=== PATIENT | male | born 1980 | race African-American/Black ===

== ENCOUNTER 2020-09-10 16:57 | Outpatient (REF) | payer OTHER, SELFPAY | END 2020-09-10 16:58 | disposition home or self-care (01) | LOC: HO.LAB 16:57 | PROVIDERS: Visit Provider Internal Medicine | DX: Z20.828 Contact with and (suspected) exposure to other viral communicable diseases (principal) | CPT/HCPCS: 36415; C9803; U0003 ==

== ENCOUNTER 2021-01-14 17:37 | Emergency (ER) | payer MEDICAID, SELFPAY ==
--- NOTE | ~2021-01-14 | CT_ITS ---
EXAMINATION: CT HEAD WITHOUT CONTRAST CT CERVICAL SPINE WITHOUT CONTRAST CLINICAL INFORMATION: Fall. Left eye swelling. COMPARISON: CT facial bones 08/17/2012. CT head 06/26/2007 TECHNIQUE: Imaging was performed from the skull base to vertex without intravenous administration of contrast. In addition, helical noncontrast CT imaging was acquired through the cervical spine and source images were reviewed along with axial reconstructions and sagittal and coronal MPRs. [This CT examination was performed using dose optimization techniques as appropriate, variously including the following: *Automated exposure control *Adjustment of mA and/or kV according to patient size (this includes techniques or standardized protocols for targeted exams where dose is matched to indication/reason for exam; i.e. extremities or head) *Use of iterative reconstruction technique] DLP: 10.25+ 655.73 +359.46 mGy-cm FINDINGS: HEAD: Soft tissue swelling of the left orbit. The orbital globes and retrobulbar structures are normal. There is no skull fracture. No intracranial mass, hemorrhage, or midline shift is visualized. The ventricles and sulci are age-appropriate. No extra-axial collections are identified. Trace fluid layering dependently in the left sphenoid sinus. The mastoid air cells and middle ear cavities are normally aerated. CERVICAL SPINE: There is no evidence of acute cervical spine fracture. Vertebral bodies remain normal in height. Cervical vertebrae have normal alignment. There is multilevel degenerative spondylosis of the cervical spine with disc height narrowing and endplate spurs and facet joint arthrosis No pre- or paravertebral soft tissue abnormality is identified. Paraseptal emphysematous change of lungs. Small subpleural blebs at right lung apex. CT/CT cervical spine wo con IMPRESSION: 1. No acute intracranial pathology. 2. No CT evidence of acute cervical spine fracture or traumatic subluxation 3. Soft tissue swelling over the left orbit.
--- NOTE | ~2021-01-14 | CT_ITS ---
EXAM: Contrast-enhanced CT scan of the chest, abdomen, and pelvis. INDICATION: Question trauma. Left lower quadrant abdominal pain. COMPARISON: None TECHNIQUE: Multidetector helical imaging of the chest, abdomen, and pelvis was obtained from the thoracic inlet through the pubic symphysis following administration of 85 cc of Omnipaque 350 IV contrast. Coronal and sagittal reformatted images that were obtained were also reviewed. Today's examination is limited secondary to motion artifact. DLP: 769 mGy-cm FINDINGS: CHEST: Central airways are patent. Lungs are well aerated. Mild emphysematous changes are present. There is no lobar consolidation. Mild dependent atelectasis. No pleural effusion or pneumothorax identified. Evaluation for pulmonary nodules is limited due to respiratory motion artifact, however, no gross focal mass is identified. The heart is normal in size. Small amount of pericardial fluid without pericardial effusion. Nonaneurysmal thoracic aorta. No gross mediastinal or hilar lymphadenopathy. ABDOMEN/PELVIS: The liver demonstrates normal size, contour and attenuation. 3 mm hypodensity within the posterior right hepatic lobe is too small to accurately characterize. The gallbladder is decompressed and therefore not accurately evaluated. The pancreas, spleen and adrenal glands are unremarkable. Symmetrically enhancing kidneys. There is a dilated left renal pelvis with mild dilatation of left calyces. There is abrupt transition to a normal caliber left ureter. Normal caliber loops of small and large bowel. Prominent stool burden within the distal sigmoid colon and rectal vault. Normal caliber abdominal aorta. The bladder is normal in appearance. No gross free pelvic fluid. No inguinal lymphadenopathy. OSSEOUS STRUCTURES No acute osseous abnormality. Suspected bone island left ilium. CT/CT abdomen pelvis w con IMPRESSION: 1. Today's examination is limited due to motion artifact. 2. Mild emphysema. 3. Dilated left renal pelvis with mild dilatation of the left calyces. There appears to be abrupt transition to normal caliber left ureter. No obstructing calculus is identified. Findings suggest left UPJ stenosis. Unfortunately imaging in this area is suboptimal due to motion artifact. This may be further evaluated with repeat CT urogram as clinically indicated. 4. Prominent stool burden within the distal sigmoid colon and rectal vault. This CT examination was performed using dose optimization techniques as appropriate, variously including the following: *Automated exposure control *Adjustment of mA and/or kV according to patient size (this includes techniques or standardized protocols for targeted exams where dose is matched to indication/reason for exam; i.e. extremities or head) *Use of iterative reconstruction technique
[2021-01-14 17:57] VITALS: BP 121/70; BP 146/100; PULSE 105; PULSE 89; RESP 18; TEMP 37.5; O2SAT 99; BMI 23.6
--- NOTE | 2021-01-14 18:42 | ED.GENADULT ---
HPI - General Adult General Chief complaint: General Medical <DAREN Rogers Last Filed: 01/14/21 21:38> Stated complaint: right eye swelling/head pain <DAREN Rogers Last Filed: 01/14/21 21:38> Time Seen by Provider: 01/14/21 18:28 <DAREN Rogers Last Filed: 01/14/21 21:38> Source: patient and EMS <DAREN Rogers Last Filed: 01/14/21 21:38> Mode of arrival: EMS <DAREN Rogers Last Filed: 01/14/21 21:38> History of Present Illness HPI narrative: 40-year-old male with past medical history of IVDA/substance abuse presenting to the ED via EMS for left eye swelling, diffuse myalgias, and abdominal pain x today. Patient does not have any recollection of trauma/events. Reports nausea, and is requesting detox. Denies visual change/loss, headache, chest pain, shortness of breath, diarrhea/constipation, vomiting. Admits to drinking EtOH this morning, denies being a daily drinker, denies SI/HI Patient is a vague historian <DAREN Rogers Last Filed: 01/14/21 21:38> Related Data Allergies/adverse reactions: Allergies Allergy/AdvReac Type Severity Reaction Status Date / Time Penicillins [PENICILLINS] Allergy Unknown VOMITING Verified 01/14/21 20:43 <DAREN Rogers Last Filed: 01/14/21 21:38> Review of Systems Review of Systems: Constitutional: No Fever, No Chills ENT/Mouth: No Hearing loss, No Ear Pain, No sore throat Eyes: + Eye Pain, + Swelling, No Redness, No Foreign Body, No Discharge, No Vision Changes Cardiovascular: No Chest Pain, No SOB Respiratory: No Cough, No Dyspnea Gastrointestinal: + Nausea, No Vomiting, No Diarrhea, No Constipation, + Abdominal pain Genitourinary: No Dysuria, No Urinary Frequency, No Hematuria, No Flank Pain Musculoskeletal: No joint pain, + Myalgias Skin: No Skin Lesions, No rash Neuro: No Weakness, No Dizziness, No Headache Psych: No Depression, No SI/HI <DAREN Rogers Last Filed: 01/14/21 21:38> Yes all other systems are reviewed and are negative <DAREN Rogers - Last Filed: 01/14/21 21:38> Neurologic: Denies confusion <DAREN Rogers - Last Filed: 01/14/21 21:38> Psychiatric: Psychiatric: Denies confusion <DAREN Rogers - Last Filed: 01/14/21 21:38> PMFSH Past Medical History Attestation statement: The following information was validated with the patient. <DAREN Rogers - Last Filed: 01/14/21 21:38> Medical History: Medical History (Updated 01/14/21 @ 22:18 by Rinku Nayak MD) No known health problems <DAREN oRgers - Last Filed: 01/14/21 21:38> Social History Social History: Social History Smoking Status: Current every day smoker Use of substances other than those prescribed or required for medical reasons: Yes Substance Use Type: Crack/Cocaine and Heroin Advance Directives: No Advance Directives Information Provided: Yes <DAREN Rogers - Last Filed: 01/14/21 21:38> Physical Exam Vital Signs: Vital Signs: Last Vital Signs Temp 97.8 F 01/14/21 22:00 Pulse 84 01/14/21 22:00 Resp 16 01/14/21 22:00 BP 138/81 01/14/21 22:00 Pulse Ox 99 01/14/21 22:00 Body Mass Index 23.6 <DAREN Rogers - Last Filed: 01/14/21 21:38> Vital Signs: Last Vital Signs Temp 97.8 F 01/14/21 22:00 Pulse 84 01/14/21 22:00 Resp 16 01/14/21 22:00 BP 138/81 01/14/21 22:00 Pulse Ox 99 01/14/21 22:00 Body Mass Index 23.6 <Rinku Nayak MD - Last Filed: 01/14/21 22:18> Const: General: cooperative, alert and awake; No confusion <DAREN Rogers - Last Filed: 01/14/21 21:38> Orientation/consciousness: patient oriented x3 and No confusion <DAREN Rogers - Last Filed: 01/14/21 21:38> Limitations: no limitations <Martha Mark PA - Last Filed: 01/14/21 21:38> HENMT: Head: No scalp tenderness <Martha Mark PA - Last Filed: 01/14/21 21:38> Ears: hearing grossly normal bilaterally and TM's normal bilaterally <Martha Mark PA - Last Filed: 01/14/21 21:38> General nose exam: Normal external nose present <Martha Mark PA - Last Filed: 01/14/21 21:38> Mouth: Normal oral and palatal mucosa present <Martha Mark PA - Last Filed: 01/14/21 21:38> Throat: Yes posterior oropharynx normal <Martha Mark PA - Last Filed: 01/14/21 21:38> Eyes: Other: Large left upper eyelid hematoma with ecchymosis and tenderness to palpation. No appreciable ocular involvement. EOMs intact without pain, no evidence of ocular entrapment or globe rupture, PERRLA <Martha Mark PA - Last Filed: 01/14/21 21:38> Eyelids: Yes eyelid abnormality <Martha Mark PA - Last Filed: 01/14/21 21:38> Conjunctivae: conjunctivae normal <Martha Mark PA - Last Filed: 01/14/21 21:38> Sclerae: sclerae normal <Martha Mark PA - Last Filed: 01/14/21 21:38> Pupils: Equal, round and reactive pupils present <Martha Mark PA - Last Filed: 01/14/21 21:38> EOM: EOMs intact bilaterally <Martha Mark PA - Last Filed: 01/14/21 21:38> Direct Ophthalmoscopy: normal light reflex <Martha Mark PA - Last Filed: 01/14/21 21:38> Neck: Other: No midline cervical spinous ttp or step offs <Martha Mark PA - Last Filed: 01/14/21 21:38> Neck: Yes normal visual inspection <Martha Mark PA - Last Filed: 01/14/21 21:38> Chest: Chest palpation & inspection: normal inspection of the chest, no crepitus and no tenderness <Martha Mark PA - Last Filed: 01/14/21 21:38> Resp: Effort & Inspection: normal respiratory effort <Martha Deedee PA - Last Filed: 01/14/21 21:38> Auscultation: clear to auscultation bilaterally, no rales, no rhonchi and no wheezes <Martha Deedee PA - Last Filed: 01/14/21 21:38> Cardio: Rate: regular rate <Martah Deedee PA - Last Filed: 01/14/21 21:38> Heart sounds: S1 normal heart sound present and S2 normal heart sound present <Martha Deedee PA - Last Filed: 01/14/21 21:38> GI: Inspection: Yes normal to inspection <Martha Deedee PA - Last Filed: 01/14/21 21:38> Palpation (GI): Soft to palpation, Tenderness to palpation present (GI) (lower abdominal ttp) in the LLQ, no guarding and not rigid <Marthasaumya Mark PA - Last Filed: 01/14/21 21:38> Back/Spine/Pelvis: Other: No midline thoracic/lumbar spinous tenderness <Martha Deedee PA - Last Filed: 01/14/21 21:38> Skin: Rashes: no rashes <Martha Deedee PA - Last Filed: 01/14/21 21:38> Neuro: General: patient oriented x3, tone normal, moves all extremities, no focal motor deficits, CN's II-XI intact bilaterally and No confusion <Martha Deedee PA - Last Filed: 01/14/21 21:38> Cranial nerves: Yes Equal, round and reactive pupils present <Martha Mark PA - Last Filed: 01/14/21 21:38> Gait exam (Neuro): Normal gait present <Martha Deedee PA - Last Filed: 01/14/21 21:38> Motor exam (neuro): 5/5 motor strength present throughout, Pronator motor function not present and no tremor noted <Martha Mark PA - Last Filed: 01/14/21 21:38> Coordination: bijxes-cf-vdtf test normal <Martha Mark PA - Last Filed: 01/14/21 21:38> Extrem: General: Yes normal to inspection <Martha Mark PA - Last Filed: 01/14/21 21:38> Course Course Course Narrative: -2134--WBC count 11, AST/ALT mildly elevated, labs otherwise unremarkable. CT head/C-spine/chest AP pending, ED care transferred to Dr. Nayak pending these results and dispo per results -patient was seen by our recovery advocate and excepted to [facility], however patient has no identification on him, can go to [facility] in the morning so they can assist him to get into detox with his ID <DAREN Rogers - Last Filed: 01/14/21 21:38> I have discussed with the ANA. Large left orbital hematoma, EOMI no entrapment <Rinku Nayak MD - Last Filed: 01/14/21 22:18> Reevaluation(s) Reevaluation #1: IMPRESSION: 1. Today's examination is limited due to motion artifact. 2. Mild emphysema. 3. Dilated left renal pelvis with mild dilatation of the left calyces. There appears to be abrupt transition to normal caliber left ureter. No obstructing calculus is identified. Findings suggest left UPJ stenosis. Unfortunately imaging in this area is suboptimal due to motion artifact. This may be further evaluated with repeat CT urogram as clinically indicated. 4. Prominent stool burden within the distal sigmoid colon and rectal vault. <Rinku Nayak MD - Last Filed: 01/14/21 22:18> Time: 22:14 <Rinku Nayak MD - Last Filed: 01/14/21 22:18> Reevaluation #2: with slight dilation of left collecting system will refer to Dr. Shaw <Rinku Nayak MD - Last Filed: 01/14/21 22:18> Medical Decision Making [facility] Narrative Medical decision making narrative: 40-year-old male with past medical history of IVDA/substance abuse presenting to the ED via EMS for left eye swelling, diffuse myalgias, and abdominal pain x today. Reports nausea, and is requesting detox. On exam VS as, NAD, A&Ox3, no focal neuro deficits, physical exam as above. Evidence of facial trauma, patient does not recollect any events. Concern for trauma of unknown etiology/substance abuse. Rule out ICH/internal injury/bleeding vs intra-abdominal pathology Plan: Labs, UA, CT AP, IVF, reassess <DAREN Rogers - Last Filed: 01/14/21 21:38> Lab Data Result diagrams: : 01/14/21 20:05 01/14/21 20:05 <DAREN Rogers - Last Filed: 01/14/21 21:38> Labs: Lab Results 01/14/21 01/14/21 01/14/21 Range/Units 20:05 20:05 20:05 WBC 11.0 H (4.8-10.8) X10*3/uL RBC 4.96 (4.60-5.80) X10*6/uL Hgb 14.4 (14.0-18.0) g/dl Hct 43.4 (42-52) % MCV 87.5 (80-98) fL MCH 29.0 (27.0-33.0) pg MCHC 33.2 (31.0-36.0) g/dl RDW 13.1 (11.0-16.0) % Plt Count 427 H (160-400) X10*3/uL MPV 9.2 L (9.4-12.4) fL Immature Gran % (Auto) 0.3 (0.0-0.4) % Neut % (Auto) 82.1 H (45-73) % Lymph % (Auto) 8.9 L (20-40) % [place] % (Auto) 8.6 (2-11) % Eos % (Auto) 0.0 (0-4) % Baso % (Auto) 0.1 (0-2) % Lymph # (Auto) 1.0 L (1.2-4.9) X10*3/uL [place] # (Auto) 0.9 (0.1-1.2) X10*3/uL Eos # (Auto) 0.0 (0.0-0.4) X10*3/uL Baso # (Auto) 0.0 (0.0-0.2) X10*3/uL Abs Immat Gran (auto) 0.03 (0.00-0.03) X10*3/uL Absolute Neuts (auto) 9.0 H (2.0-8.3) X10*3/uL Absolute Nucleated RBC 0.000 (0.0-0.012) X10*3/uL Nucleated RBC % (auto) 0.0 (0.0-0.2) /100WBC PT (10.8-13.0) SEC INR (0.9-1.1) APTT (24.1-38.0) SEC Sodium 139 (135-145) mmol/L Potassium 3.7 (3.3-5.1) mmol/L Chloride 104 (96-108) mmol/L Carbon Dioxide 24 (22-29) mmol/L Anion Gap 15 (12-20) BUN 12 (9-16) mg/dL Creatinine 0.82 (0.5-1.4) mg/dL Estim Creat Clear Calc 120.9 Estimated GFR > 60 Random Glucose 114 (60-115) mg/dL Calcium 9.6 (8.4-10.2) mg/dL Magnesium 2.4 (1.6-2.6) mg/dL Total Bilirubin 0.5 (0.0-1.0) mg/dL Direct Bilirubin 0.3 (0.0-0.5) mg/dL AST 62 H (5-37) U/L ALT 70 H (0-40) U/L Alkaline Phosphatase 85 (39-117) U/L Total Protein 8.4 H (6.5-8.0) g/dL Albumin 4.0 (3.5-5.0) g/dL Lipase 19 (8-78) U/L Ethyl Alcohol mg/dL 01/14/21 01/14/21 Range/Units 20:05 20:05 WBC (4.8-10.8) X10*3/uL RBC (4.60-5.80) X10*6/uL Hgb (14.0-18.0) g/dl Hct (42-52) % MCV (80-98) fL MCH (27.0-33.0) pg MCHC (31.0-36.0) g/dl RDW (11.0-16.0) % Plt Count (160-400) X10*3/uL MPV (9.4-12.4) fL Immature Gran % (Auto) (0.0-0.4) % Neut % (Auto) (45-73) % Lymph % (Auto) (20-40) % [place] % (Auto) (2-11) % Eos % (Auto) (0-4) % Baso % (Auto) (0-2) % Lymph # (Auto) (1.2-4.9) X10*3/uL [place] # (Auto) (0.1-1.2) X10*3/uL Eos # (Auto) (0.0-0.4) X10*3/uL Baso # (Auto) (0.0-0.2) X10*3/uL Abs Immat Gran (auto) (0.00-0.03) X10*3/uL Absolute Neuts (auto) (2.0-8.3) X10*3/uL Absolute Nucleated RBC (0.0-0.012) X10*3/uL Nucleated RBC % (auto) (0.0-0.2) /100WBC PT 12.5 (10.8-13.0) SEC INR 1.1 (0.9-1.1) APTT 31.9 (24.1-38.0) SEC Sodium (135-145) mmol/L Potassium (3.3-5.1) mmol/L Chloride (96-108) mmol/L Carbon Dioxide (22-29) mmol/L Anion Gap (12-20) BUN (9-16) mg/dL Creatinine (0.5-1.4) mg/dL Estim Creat Clear Calc Estimated GFR Random Glucose (60-115) mg/dL Calcium (8.4-10.2) mg/dL Magnesium (1.6-2.6) mg/dL Total Bilirubin (0.0-1.0) mg/dL Direct Bilirubin (0.0-0.5) mg/dL AST (5-37) U/L ALT (0-40) U/L Alkaline Phosphatase (39-117) U/L Total Protein (6.5-8.0) g/dL Albumin (3.5-5.0) g/dL Lipase (8-78) U/L Ethyl Alcohol < 10 mg/dL <DAREN Rogers - Last Filed: 01/14/21 21:38> Lab Results 01/14/21 01/14/21 01/14/21 Range/Units 20:05 20:05 20:05 WBC 11.0 H (4.8-10.8) X10*3/uL RBC 4.96 (4.60-5.80) X10*6/uL Hgb 14.4 (14.0-18.0) g/dl Hct 43.4 (42-52) % MCV 87.5 (80-98) fL MCH 29.0 (27.0-33.0) pg MCHC 33.2 (31.0-36.0) g/dl RDW 13.1 (11.0-16.0) % Plt Count 427 H (160-400) X10*3/uL MPV 9.2 L (9.4-12.4) fL Immature Gran % (Auto) 0.3 (0.0-0.4) % Neut % (Auto) 82.1 H (45-73) % Lymph % (Auto) 8.9 L (20-40) % [place] % (Auto) 8.6 (2-11) % Eos % (Auto) 0.0 (0-4) % Baso % (Auto) 0.1 (0-2) % Lymph # (Auto) 1.0 L (1.2-4.9) X10*3/uL [place] # (Auto) 0.9 (0.1-1.2) X10*3/uL Eos # (Auto) 0.0 (0.0-0.4) X10*3/uL Baso # (Auto) 0.0 (0.0-0.2) X10*3/uL Abs Immat Gran (auto) 0.03 (0.00-0.03) X10*3/uL Absolute Neuts (auto) 9.0 H (2.0-8.3) X10*3/uL Absolute Nucleated RBC 0.000 (0.0-0.012) X10*3/uL Nucleated RBC % (auto) 0.0 (0.0-0.2) /100WBC PT (10.8-13.0) SEC INR (0.9-1.1) APTT (24.1-38.0) SEC Sodium 139 (135-145) mmol/L Potassium 3.7 (3.3-5.1) mmol/L Chloride 104 (96-108) mmol/L Carbon Dioxide 24 (22-29) mmol/L Anion Gap 15 (12-20) BUN 12 (9-16) mg/dL Creatinine 0.82 (0.5-1.4) mg/dL Estim Creat Clear Calc 120.9 Estimated GFR > 60 Random Glucose 114 (60-115) mg/dL Calcium 9.6 (8.4-10.2) mg/dL Magnesium 2.4 (1.6-2.6) mg/dL Total Bilirubin 0.5 (0.0-1.0) mg/dL Direct Bilirubin 0.3 (0.0-0.5) mg/dL AST 62 H (5-37) U/L ALT 70 H (0-40) U/L Alkaline Phosphatase 85 (39-117) U/L Total Protein 8.4 H (6.5-8.0) g/dL Albumin 4.0 (3.5-5.0) g/dL Lipase 19 (8-78) U/L Ethyl Alcohol mg/dL 01/14/21 01/14/21 Range/Units 20:05 20:05 WBC (4.8-10.8) X10*3/uL RBC (4.60-5.80) X10*6/uL Hgb (14.0-18.0) g/dl Hct (42-52) % MCV (80-98) fL MCH (27.0-33.0) pg MCHC (31.0-36.0) g/dl RDW (11.0-16.0) % Plt Count (160-400) X10*3/uL MPV (9.4-12.4) fL Immature Gran % (Auto) (0.0-0.4) % Neut % (Auto) (45-73) % Lymph % (Auto) (20-40) % [place] % (Auto) (2-11) % Eos % (Auto) (0-4) % Baso % (Auto) (0-2) % Lymph # (Auto) (1.2-4.9) X10*3/uL [place] # (Auto) (0.1-1.2) X10*3/uL Eos # (Auto) (0.0-0.4) X10*3/uL Baso # (Auto) (0.0-0.2) X10*3/uL Abs Immat Gran (auto) (0.00-0.03) X10*3/uL Absolute Neuts (auto) (2.0-8.3) X10*3/uL Absolute Nucleated RBC (0.0-0.012) X10*3/uL Nucleated RBC % (auto) (0.0-0.2) /100WBC PT 12.5 (10.8-13.0) SEC INR 1.1 (0.9-1.1) APTT 31.9 (24.1-38.0) SEC Sodium (135-145) mmol/L Potassium (3.3-5.1) mmol/L Chloride (96-108) mmol/L Carbon Dioxide (22-29) mmol/L Anion Gap (12-20) BUN (9-16) mg/dL Creatinine (0.5-1.4) mg/dL Estim Creat Clear Calc Estimated GFR Random Glucose (60-115) mg/dL Calcium (8.4-10.2) mg/dL Magnesium (1.6-2.6) mg/dL Total Bilirubin (0.0-1.0) mg/dL Direct Bilirubin (0.0-0.5) mg/dL AST (5-37) U/L ALT (0-40) U/L Alkaline Phosphatase (39-117) U/L Total Protein (6.5-8.0) g/dL Albumin (3.5-5.0) g/dL Lipase (8-78) U/L Ethyl Alcohol < 10 mg/dL <Rinku Nayak MD - Last Filed: 01/14/21 22:18> Discharge Plan Discharge Clinical Impression: Hematoma of left orbit, Active substance abuse Abdominal pain Qualifiers: Abdominal location: left lower quadrant Qualified Code(s): R10.32 - Left lower quadrant pain <DAREN Rogers - Last Filed: 01/14/21 21:38> Instructions: Polysubstance Abuse (ED), Hematoma (ED) <DAREN Rogers - Last Filed: 01/14/21 21:38> Additional Instructions: IC eye. Take Tylenol /Motrin for pain/swelling Go to [facility] in the morning and they can help you get into a detox center You also needs to follow up with Dr. Shaw as your left kidney is swollen <DAREN Rogers - Last Filed: 01/14/21 21:38> Referrals: Phillip Shaw MD [Physician] - 10 days (there is dilation of your left kidney, you need to follow up with Dr. Shaw) <DAREN Rogers - Last Filed: 01/14/21 21:38>
[2021-01-14 19:49] VITALS: BP 133/74; PULSE 60; RESP 16; TEMP 36.6; O2SAT 99
--- NOTE | 2021-01-14 19:53 | MHC.RECOVSUP ---
? Reason for consult Seeking Detox o Current location: [facility] o Identified substance use concern: Heroin - Withdrawal - Seeking ATS (detox) - Support ? Intervention: o ATS bed search started7:45PM/completed7:50PM o Community resources provided o Harm reduction discussion ? Plan: o Patient to follow up with [facility] after discharge ? Additional information: Patient is seeking help to get to a detox.. I was able to find a bed at [facility] But patient currently does not have insurance.. [place] was willing to take him anyway but patient does not have any form of ID.. I suggested to the patient to go home and get any ID he can find and to go [facility] in the morning so they could assist him to get to a detox.
[2021-01-14 20:11] LABS: MANUAL DIFF FLAG NO
[2021-01-14 20:13] LABS: Basophils Percent Auto 0.1 % (0-2); Hematocrit 43.4 % (42-52); Hemoglobin 14.4 g/dl (14.0-18.0); Imm Gran Abs Auto 0.03 X10*3/uL (0.00-0.03); Imm Gran Pct Auto 0.3 % (0.0-0.4); Lymphocytes Percent Auto 8.9 % (20-40); Mean Corpuscular HGB Conc 33.2 g/dl (31.0-36.0); Mean Corpuscular Volume 87.5 fL (80-98); Mean Platelet Volume 9.2 fL (9.4-12.4); Monocytes Absolute Auto 0.9 X10*3/uL (0.1-1.2); Monocytes Percent Auto 8.6 % (2-11); Neutrophils Percent Auto 82.1 % (45-73); Platelet Count 427 X10*3/uL (160-400); Red Blood Count 4.96 X10*6/uL (4.60-5.80); Red Cell Distribution Width 13.1 % (11.0-16.0)
[2021-01-14 20:19] LABS: INTERNATIONAL NORM RATIO 1.1 (0.9-1.1); Prothrombin Time 12.5 SEC (10.8-13.0)
[2021-01-14 20:22] LABS: Partial Thromboplastin Time 31.9 SEC (24.1-38.0)
[2021-01-14 20:36] LABS: Lipase 19 U/L (8-78); Magnesium 2.4 mg/dL (1.6-2.6)
[2021-01-14 20:45] LABS: Alanine Aminotransferase 70 U/L (0-40); Alkaline Phosphatase 85 U/L (39-117); Anion Gap 15 (12-20); Aspartate Amino Transferase 62 U/L (5-37); Bilirubin Direct 0.3 mg/dL (0.0-0.5); Bilirubin Total 0.5 mg/dL (0.0-1.0); Blood Urea Nitrogen 12 mg/dL (9-16); Calcium 9.6 mg/dL (8.4-10.2); Carbon Dioxide 24 mmol/L (22-29); Chloride 104 mmol/L (96-108); Creatinine Clr Calc Pharmacy 120.9; Estimated Glomerular Filt Rate > 60; Glucose Random 114 mg/dL (60-115); Potassium 3.7 mmol/L (3.3-5.1); Sodium 139 mmol/L (135-145); Total Protein 8.4 g/dL (6.5-8.0)
[2021-01-14 20:50] LABS: Ethanol < 10 mg/dL
[2021-01-14] MEDS: iohexoL 350 MG/ML 100 ML INFUS..BTL IV (21:05)
--- NOTE | 2021-01-14 21:23 | PC.NURSE ---
THIS PCT ATTEMPT TO DO VISUAL ACUITY CHECK ON PATIENT ,AT THIS TIME PATIENT IS UNCOOPERATIVE AND UNABLE TO PARTICAPATE IN EXAM ,WILL TRY LATER ,RN AND MD AWARE.
[2021-01-14 22:00] VITALS: BP 138/81; PULSE 84; RESP 16; TEMP 36.6; O2SAT 99
[2021-01-14 22:21] LABS: Appearance Urine CLEAR; Color Urine DARK YELLOW; Glucose Urine UA NEG (NEG); Leukocyte Esterase Urine NEG (NEG); Nitrite Urine NEG (NEG); Urine Blood NEG (NEG); Urine Ketones 15 MG/DL (NEG); Urine Protein TRACE MG/DL (NEG-TRACE)
[2021-01-14 22:45] LABS: Amphetamine Screen Urine Not Detected (Not Detect); Barbiturates, Urine Not Detected (Not Detect); Benzodiazepines Screen Urine Not Detected (Not Detect); Cannabinoid Screen Urine POSITIVE (Not Detect); Cocaine Screen Urine POSITIVE (Not Detect); Opiate Screen Urine Not Detected (Not Detect); Phencyclidine Screen Urine POSITIVE (Not Detect)
--- NOTE | 2021-01-14 22:48 | PC.NURSE ---
Patient refused to do the eye test. MD aware. Patient discharged home self care.
== END 2021-01-14 23:00 | disposition home or self-care (01) ==
PROVIDERS: Physician Assistant; Emergency Provider Emergency Medicine
DX: S05.12XA Contusion of eyeball and orbital tissues, left eye, initial encounter (principal); X58.XXXA Exposure to other specified factors, initial encounter; F14.10 Cocaine abuse, uncomplicated; R10.32 Left lower quadrant pain; N28.81 Hypertrophy of kidney; Y93.9 Activity, unspecified; Y92.9 Unspecified place or not applicable; Y99.9 Unspecified external cause status
CPT/HCPCS: 36415; 70450; 71260; 72125; 74177; 80048; 80076; 80307; 80320; 81003; 83690; 83735; 85025; 85610; 85730; 96361; 96374; 99284; Q9967

== ENCOUNTER 2021-02-10 17:22 | Emergency (ER) | payer MEDICAID, SELFPAY ==
--- NOTE | 2021-02-10 17:35 | PC.NURSE ---
Patient brought in be ems for evalution due to drug use over the last few days. Family was concerned snce patient has been sleeping. Pt is very disheveled, dirt, urine and feces on clothing. Pt is alert. Pt refuses to have vital signs taken by staff. pt repeatly states that he want to leave. Pt encouraged to see provider.
--- NOTE | 2021-02-10 18:00 | PC.NURSE ---
Pt no longer in bed and has eloped
--- NOTE | 2021-02-10 18:12 | ED_ITS ---
HPI - Psych General Chief Complaint: ETOH/Substance Use Stated Complaint: POLYSUBSTANCE ABUSE Time Seen by Provider: 02/10/21 19:40 History of Present Illness HPI Narrative: Patient eloped from the ER before I can evaluate him. Staff was unaware he eloped. Related Data Allergies Allergy/AdvReac Type Severity Reaction Status Date / Time Penicillins [PENICILLINS] Allergy Unknown VOMITING Verified 01/14/21 20:43 [facility] Past Medical History Medical History (Updated 02/10/21 @ 18:14 by DAREN Gallo) No known health problems Social History Social History Substance Use Type: Crack/Cocaine and Heroin Advance Directives: No Advance Directives Information Provided: Yes Physical Exam Vital Signs: Vital Signs: Last Vital Signs Temp 97.8 F 02/10/21 19:40 Pulse 70 02/10/21 19:40 Resp 20 02/10/21 19:40 BP 110/70 02/10/21 19:40 Pulse Ox 98 02/10/21 19:40 Body Mass Index 25.0 MDM - Psych Lab Data Labs: Lab Results 02/10/21 Range/Units 19:24 COVID-19 (MELSISA) Negative (Negative) COVID-19 Clin Com See Note Discharge Plan Discharge Clinical Impression: Polysubstance abuse Patient Disposition: Elopement
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
--- NOTE | 2021-02-10 18:49 | PC.NURSE ---
pt in the shower at this time due to being covered in feces
[2021-02-10 19:08] VITALS: BMI 25.0
[2021-02-10 19:40] VITALS: BP 110/70; PULSE 70; RESP 20; TEMP 36.6; O2SAT 98
[2021-02-10 19:51] LABS: COVID-19 Test Negative (Negative); IDNOW Serial# 9DD0AD1C
--- NOTE | 2021-02-10 20:23 | PC.NURSE ---
pt took a shower fully clothed. pt given new hospital gown to change into.
--- NOTE | 2021-02-10 22:15 | PC.NURSE ---
MAUREEN Alvarez) in room to evaluate pt. per MLNolvia plan is to discharge pt.
--- NOTE | 2021-02-10 22:18 | ED.GENADULT ---
HPI - General Adult General Chief complaint: ETOH/Substance Use Stated complaint: POLYSUBSTANCE ABUSE Time Seen by Provider: 02/10/21 19:40 Source: patient Mode of arrival: ambulatory Limitations: no limitations History of Present Illness HPI narrative: patient presents to the ED by Sigifredo LAM for breaking into cars. Patient is not suicidal or homicidal. Patient denies any auditory/visual hallucinations. patient does not want detox. Patient admits to drug use Related Data Allergies Allergy/AdvReac Type Severity Reaction Status Date / Time Penicillins [PENICILLINS] Allergy Unknown VOMITING Verified 01/14/21 20:43 Review of Systems Review of Systems: Yes all other systems are reviewed and are negative Constitutional: Constitutional: Reports as per HPI and Reports no additional constitutional complaints Eyes: Eyes: Reports as per HPI and Reports no additional eye complaints ENT: Reports system reviewed and no additional complaints, except as documented and Reports as per HPI Cardiovascular: Cardiovascular: Reports as per HPI and Reports no additional cardiovascular complaints Respiratory: Respiratory: Reports as per HPI and Reports no additional respiratory complaints Gastrointestinal: Gastrointestinal: Reports as per HPI and Reports no additional gastrointestinal complaints Genitourinary: Genitourinary: Reports no additional male genitourinary complaints and Reports as per HPI Musculoskeletal: Musculoskeletal: Reports no additional musculoskeletal complaints and Reports as per HPI Neurologic: Reports system reviewed and no additional complaints, except as documented and Reports as per HPI Psychiatric: Psychiatric: Reports no additional psychiatric complaints and Reports as per HPI [facility] Past Medical History Medical History (Updated 02/10/21 @ 18:14 by DAREN Gallo) No known health problems Social History Social History Substance Use Type: Crack/Cocaine and Heroin Advance Directives: No Advance Directives Information Provided: Yes Physical Exam Vital Signs: Vital Signs: Last Vital Signs Temp 97.8 F 02/10/21 19:40 Pulse 70 02/10/21 19:40 Resp 20 02/10/21 19:40 BP 110/70 02/10/21 19:40 Pulse Ox 98 02/10/21 19:40 Body Mass Index 25.0 Const: General: cooperative, healthy appearing, comfortable, no acute distress, well developed, alert, awake and Physically active HENMT: Head: Yes normal to inspection, Yes No palpable skull fracture present, Yes normocephalic, Yes atraumatic, No abrasion, No Acrocyanosis present, No Shea's sign, No contusion, No cranial bruits, No hematoma, No laceration, No occipital foramen tenderness, No palpable skull fracture, No raccoon eyes, No scalp lesion, No scalp tenderness, No Temporal artery tenderness present and No periorbital ecchymosis Eyes: General: appearance normal, both eyes and all related structures Neck: Neck: Yes normal visual inspection, Yes full ROM, Yes no lymphadenopathy, Yes no meningeal signs, Yes trachea midline, Yes supple and No tender Chest: Chest palpation & inspection: normal inspection of the chest and normal palpation of entire chest wall Resp: Effort & Inspection: normal respiratory effort and able to speak in complete sentences Auscultation: clear to auscultation bilaterally Cardio: Jugular venous distension: no JVD Heart sounds: S1 normal heart sound present and S2 normal heart sound present GI: Inspection: Yes normal to inspection and No abdominal wall ecchymosis Palpation (GI): Soft to palpation, not firm, nontender, no guarding and not rigid : General: No CVA tenderness and Yes no CVA tenderness Back/Spine/Pelvis: Back: no CVA tenderness, No CVA tenderness and No back tenderness Skin: General skin exam: no rashes or lesions noted and elasticity normal Neuro: General: gait normal, no meningeal signs and CN's II-XI intact bilaterally Cranial nerves: Yes CN's II-XII intact bilaterally Extrem: General: Yes normal to inspection and Yes full ROM Psych: Appearance: grossly normal, well kempt and not disheveled Course Course Course Narrative: patient presently is not any distress will be re-evaluated Reevaluation(s) Reevaluation #1: patient alert oriented x3. No indication for crisis. Patient is safe for discharge. Patient does not want detox. no indication for crisis Medical Decision Making [facility] Narrative Medical decision making narrative: Polysubstance abuse Lab Data Labs: Lab Results 02/10/21 Range/Units 19:24 COVID-19 (MELISSA) Negative (Negative) COVID-19 Clin Com See Note Discharge Plan Discharge Clinical Impression: Polysubstance abuse Patient Disposition: Home, Self-Care Instructions: Polysubstance Abuse (ED) Additional Instructions: Return to the ED for any suicidal/homicidal ideation, auditory/visual hallucinations, any physical complaints, or any other concerning symptoms. Please follow-up with your PCP Print Language: Dominican
== END 2021-02-10 22:45 | disposition home or self-care (01) ==
PROVIDERS: Physician Assistant; Emergency Provider Emergency Medicine Emergency Medical Services
DX: F19.10 Other psychoactive substance abuse, uncomplicated (principal); Z20.822 Contact with and (suspected) exposure to COVID-19; F17.210 Nicotine dependence, cigarettes, uncomplicated
CPT/HCPCS: 36415; 87635; 99283; 99284

== ENCOUNTER 2021-02-11 12:01 | Emergency (ER) | payer MEDICAID, SELFPAY ==
--- NOTE | ~2021-02-11 | CT_ITS ---
EXAMINATION: CT HEAD, NONCONTRAST CT FACIAL BONES, NONCONTRAST CLINICAL INFORMATION: Trauma, left cheek ecchymosis. COMPARISON: CT had noncontrast 01/14/2021 TECHNIQUE: CT head is performed without contrast in the axial plane.. Additional 2-D coronal and sagittal reformatted images are generated on the CT workstation and uploaded to PACS. CT facial bones is performed without contrast in the axial plane.. Additional 2-D coronal and sagittal reformatted images are generated on the CT workstation and uploaded to PACS. Both CT examinations are performed using dose optimization techniques as appropriate, variously including the following: *Automated exposure control *Adjustment of mA and/or kV according to patient size (this includes techniques or standardized protocols for targeted exams where dose is matched to indication/reason for exam; i.e. extremities or head) *Use of iterative reconstruction technique DLP: 646 mGy-cm (head) 352 mGy-cm (facial) FINDINGS: Head: There is no intracranial hemorrhage, hematoma, or extra-axial fluid collection. The ventricles are normal in size. There is no hydrocephalus, edema, or mass effect. The driscoll-white matter differentiation appears symmetric. There is no visible acute territorial infarct or mass lesion.The calvarium appears intact. There is no pneumocephalus or orbital emphysema. Facial: There is no acute facial bone fracture. The orbital rims and floors, nasal bones, zygomatic arches and pterygoid plates and mandible are intact. The globes and retrobulbar soft tissues are unremarkable. The sinuses and middle ears and mastoids show no air-fluid levels. There is scattered bilateral dental disease with periapical lucencies in the bone. CT/CT facial bones wo con IMPRESSION: 1. No acute intracranial abnormality. 2. No calvarial or facial bone fracture. 3. Scattered periodontal dental disease.
--- NOTE | ~2021-02-11 | CT_ITS ---
EXAMINATION: CT CERVICAL SPINE WITHOUT CONTRAST CLINICAL INFORMATION: Fall, trauma, facial injury COMPARISON: CT head and facial bones 02/11/2021, CT cervical spine 01/14/2021 TECHNIQUE: Multidetector volumetric CT imaging of the cervical spine is performed without contrast in the axial plane. Additional 2D reformatted coronal and sagittal images are generated on the CT workstation and uploaded to PACS. This CT examination was performed using dose optimization techniques as appropriate, variously including the following: *Automated exposure control *Adjustment of mA and/or kV according to patient size (this includes techniques or standardized protocols for targeted exams where dose is matched to indication/reason for exam; i.e. extremities or head) *Use of iterative reconstruction technique DLP: 392 mGy-cm FINDINGS: There is no vertebral compression fracture, fracture line, spondylolisthesis, or prevertebral soft tissue swelling. The craniocervical junction appears normal. The odontoid appears intact. There is mild reversal cervical lordosis is similar to prior CT 01/14/2021. Again, there is variable vertebral spurring with partially bridging anterior osteophytes C4-C6. No perched facet. There is no apical pneumothorax. Scattered periodontal disease again noted with a periapical lucencies in the bone. CT/CT cervical spine wo con IMPRESSION: 1. No acute bony abnormality or prevertebral soft tissue swelling. 2. Mild reversal cervical lordosis is similar to prior CT. Scattered vertebral spurring. 3. Scattered periodontal disease with periapical lucencies in the bone.
--- NOTE | ~2021-02-11 | CT_ITS ---
EXAMINATION: CT HEAD, NONCONTRAST CT FACIAL BONES, NONCONTRAST CLINICAL INFORMATION: Trauma, left cheek ecchymosis. COMPARISON: CT had noncontrast 01/14/2021 TECHNIQUE: CT head is performed without contrast in the axial plane.. Additional 2-D coronal and sagittal reformatted images are generated on the CT workstation and uploaded to PACS. CT facial bones is performed without contrast in the axial plane.. Additional 2-D coronal and sagittal reformatted images are generated on the CT workstation and uploaded to PACS. Both CT examinations are performed using dose optimization techniques as appropriate, variously including the following: *Automated exposure control *Adjustment of mA and/or kV according to patient size (this includes techniques or standardized protocols for targeted exams where dose is matched to indication/reason for exam; i.e. extremities or head) *Use of iterative reconstruction technique DLP: 646 mGy-cm (head) 352 mGy-cm (facial) FINDINGS: Head: There is no intracranial hemorrhage, hematoma, or extra-axial fluid collection. The ventricles are normal in size. There is no hydrocephalus, edema, or mass effect. The driscoll-white matter differentiation appears symmetric. There is no visible acute territorial infarct or mass lesion.The calvarium appears intact. There is no pneumocephalus or orbital emphysema. Facial: There is no acute facial bone fracture. The orbital rims and floors, nasal bones, zygomatic arches and pterygoid plates and mandible are intact. The globes and retrobulbar soft tissues are unremarkable. The sinuses and middle ears and mastoids show no air-fluid levels. There is scattered bilateral dental disease with periapical lucencies in the bone. CT/CT head/brain wo con IMPRESSION: 1. No acute intracranial abnormality. 2. No calvarial or facial bone fracture. 3. Scattered periodontal dental disease.
[2021-02-11 12:21] VITALS: BP 121/69; BP 124/74; PULSE 76; PULSE 85; RESP 18; O2SAT 97; O2SAT 98; BMI 28.8
--- NOTE | 2021-02-11 12:30 | PC.NURSE ---
Pt alert, oriented to self, vss, Lethargic and sleeping, refused to answer some assessment questions states I just want a blanket. Pt covered in feces on arrival, cleaned and changed into hospital gown. IV established, fluids hung. Pt resting quietly, no apparent distress.
[2021-02-11 12:33] VITALS: BP 121/69; PULSE 76; RESP 18; O2SAT 97
--- NOTE | 2021-02-11 12:34 | ED_ITS ---
HPI - General Adult General Chief complaint: General Medical Stated complaint: substance abuse Time Seen by Provider: 02/11/21 16:43 Source: patient and EMS Mode of arrival: ambulatory Limitations: no limitations History of Present Illness HPI narrative: Patient presents to ED for evaluation for substance abuse. Terry rock was found sleeping on the ground. Patient admits to being homeless. He states he is not suicidal or homicidal. Patient was food to eat. EMS states lethargic but patient states she just wants to sleep. Patient was seen here yesterday twice. Patient eloped the 1st time. Second time patient was seen in the ED for breaking into cars and was discharged. Related Data Allergies Allergy/AdvReac Type Severity Reaction Status Date / Time Penicillins [PENICILLINS] Allergy Unknown VOMITING Verified 01/14/21 20:43 Review of Systems Review of Systems: Yes all other systems are reviewed and are negative Constitutional: Constitutional: Reports as per HPI and Reports no additional constitutional complaints Eyes: Eyes: Reports as per HPI and Reports no additional eye complaints ENT: Reports system reviewed and no additional complaints, except as documented and Reports as per HPI Cardiovascular: Cardiovascular: Reports as per HPI and Reports no additional cardiovascular complaints Respiratory: Respiratory: Reports as per HPI and Reports no additional respiratory complaints Gastrointestinal: Gastrointestinal: Reports as per HPI and Reports no additional gastrointestinal complaints Genitourinary: Genitourinary: Reports no additional male genitourinary complai nts and Reports as per HPI Musculoskeletal: Musculoskeletal: Reports no additional musculoskeletal complaints and Reports as per HPI Neurologic: Reports system reviewed and no additional complaints, except as documented and Reports as per HPI Psychiatric: Psychiatric: Reports no additional psychiatric complaints and Reports as per HPI [facility] Past Medical History Medical History (Updated 02/11/21 @ 22:42 by TERRY Gallo) No known health problems Social History Social History Alcohol intake: current Alcohol intake frequency: a few times a week Alcohol type: beer and hard liquor Patient Tobacco Use Status: Current everyday Tobacco user Substance Use Type: Crack/Cocaine and Heroin Advance Directives: Yes Advance Directives Information Provided: Yes Advance Directives on File: No Physical Exam Vital Signs: Vital Signs: Last Vital Signs Temp 98.9 F 02/11/21 20:06 Pulse 61 02/11/21 20:06 Resp 18 02/11/21 20:06 BP 109/68 02/11/21 20:06 Pulse Ox 98 02/11/21 20:06 Body Mass Index 28.8 Const: General: cooperative, healthy appearing, comfortable, no acute distress, well developed, alert, awake and Physically active Orientation/consciousness: patient oriented x3 HENMT: Other: Positive for left maxillary ecchymosis Head: Yes normal to inspection, Yes No palpable skull fracture present, Yes normocephalic, No Acrocyanosis present, No Shea's sign, No contusion, No cranial bruits, No hematoma, No laceration, No occipital foramen tenderness, No palpable skull fracture, No raccoon eyes, No scalp lesion, No scalp tenderness, No Temporal artery tenderness present and No periorbital ecchymosis Eyes: General: appearance normal, both eyes and all related structures Neck: Neck: Yes normal visual inspection, Yes full ROM, Yes no lymphadenopathy, Yes no meningeal signs, Yes trachea midline, Yes supple and No tender Chest: Chest palpation & inspection: normal inspection of the chest and normal palpation of entire chest wall Resp: Effort & Inspection: normal respiratory effort and able to speak in complete sentences Auscultation: clear to auscultation bilaterally Cardio: Jugular venous distension: no JVD Heart sounds: S1 normal heart sound present and S2 normal heart sound present GI: Inspection: Yes normal to inspection and No abdominal wall ecchymosis Palpation (GI): Soft to palpation, not firm, nontender, no guarding and not rigid : General: No CVA tenderness and Yes no CVA tenderness Back/Spine/Pelvis: Back: no CVA tenderness, No CVA tenderness and No back tenderness Skin: General skin exam: no rashes or lesions noted and elasticity normal Neuro: General: patient oriented x3, gait normal, no meningeal signs and CN's II-XI intact bilaterally Cranial nerves: Yes CN's II-XII intact bilaterally Extrem: General: Yes normal to inspection and Yes full ROM Psych: Appearance: grossly normal, well kempt and not disheveled Course Course Course Narrative: Patient will have medical workup and imaging machine is no trauma to the head neck or face. Reevaluation(s) Reevaluation #1: personal development coach spoke with patient who states he is agreeable to detox program. Waiting for labs and imaging. Reevaluation #2: Patient refused labs and imaging for multiple hours and finally was agreeable to labs and imagings. Labs and imaging are normal. Patient is alert oriented x3. Drawn the parent coach spoke to patient and patient has a bed for inpatient at 02:00. Sister will organize transport for patient to be brought to detox program at 20:00 in the morning. Patient transferred to the [facility]. No need for S evaluation. Patient here for substance abuse primarily PCP heroin. Patient refused to give urine. Nurse made aware to call cyst around midnight so she could organise transport for patient. SIgn out to TERRY Myles Time: 22:40 Medical Decision Making MDM Narrative Medical decision making narrative: Substance abuse Lab Data Result diagrams: 02/11/21 16:24 02/11/21 16:24 Labs: Lab Results 02/11/21 02/11/21 02/11/21 Range/Units 16:24 16:24 16:24 WBC 7.3 (4.8-10.8) X10*3/uL RBC 5.04 (4.60-5.80) X10*6/uL Hgb 14.5 (14.0-18.0) g/dl Hct 44.2 (42-52) % MCV 87.7 (80-98) fL MCH 28.8 (27.0-33.0) pg MCHC 32.8 (31.0-36.0) g/dl RDW 13.8 (11.0-16.0) % Plt Count 398 (160-400) X10*3/uL MPV 9.2 L (9.4-12.4) fL Immature Gran % (Auto) 0.1 (0.0-0.4) % Neut % (Auto) 62.5 (45-73) % Lymph % (Auto) 23.8 (20-40) % Rutherford % (Auto) 11.1 H (2-11) % Eos % (Auto) 2.2 (0-4) % Baso % (Auto) 0.3 (0-2) % Lymph # (Auto) 1.7 (1.2-4.9) X10*3/uL Rutherford # (Auto) 0.8 (0.1-1.2) X10*3/uL Eos # (Auto) 0.2 (0.0-0.4) X10*3/uL Baso # (Auto) 0.0 (0.0-0.2) X10*3/uL Abs Immat Gran (auto) 0.01 (0.00-0.03) X10*3/uL Absolute Neuts (auto) 4.6 (2.0-8.3) X10*3/uL Absolute Nucleated RBC 0.000 (0.0-0.012) X10*3/uL Nucleated RBC % (auto) 0.0 (0.0-0.2) /100WBC PT 13.5 H (10.8-13.0) SEC INR 1.1 (0.9-1.1) APTT 29.2 (24.1-38.0) SEC Sodium 142 (135-145) mmol/L Potassium 4.0 (3.3-5.1) mmol/L Chloride 111 H (96-108) mmol/L Carbon Dioxide 21 L (22-29) mmol/L Anion Gap 14 (12-20) BUN 21 H D (9-16) mg/dL Creatinine 0.87 (0.5-1.4) mg/dL Estim Creat Clear Calc 121.7 Estimated GFR > 60 Random Glucose 87 (60-115) mg/dL Calcium 9.2 (8.4-10.2) mg/dL Magnesium 2.0 (1.6-2.6) mg/dL Total Bilirubin 0.7 (0.0-1.0) mg/dL AST 35 D (5-37) U/L ALT 56 H (0-40) U/L Alkaline Phosphatase 72 (39-117) U/L Total Creatine Kinase 27 L (38-174) U/L Total Protein 7.3 (6.5-8.0) g/dL Albumin 3.5 (3.5-5.0) g/dL Ethyl Alcohol mg/dL 02/11/21 Range/Units 16:24 WBC (4.8-10.8) X10*3/uL RBC (4.60-5.80) X10*6/uL Hgb (14.0-18.0) g/dl Hct (42-52) % MCV (80-98) fL MCH (27.0-33.0) pg MCHC (31.0-36.0) g/dl RDW (11.0-16.0) % Plt Count (160-400) X10*3/uL MPV (9.4-12.4) fL Immature Gran % (Auto) (0.0-0.4) % Neut % (Auto) (45-73) % Lymph % (Auto) (20-40) % Rutherford % (Auto) (2-11) % Eos % (Auto) (0-4) % Baso % (Auto) (0-2) % Lymph # (Auto) (1.2-4.9) X10*3/uL Rutherford # (Auto) (0.1-1.2) X10*3/uL Eos # (Auto) (0.0-0.4) X10*3/uL Baso # (Auto) (0.0-0.2) X10*3/uL Abs Immat Gran (auto) (0.00-0.03) X10*3/uL Absolute Neuts (auto) (2.0-8.3) X10*3/uL Absolute Nucleated RBC (0.0-0.012) X10*3/uL Nucleated RBC % (auto) (0.0-0.2) /100WBC PT (10.8-13.0) SEC INR (0.9-1.1) APTT (24.1-38.0) SEC Sodium (135-145) mmol/L Potassium (3.3-5.1) mmol/L Chloride (96-108) mmol/L Carbon Dioxide (22-29) mmol/L Anion Gap (12-20) BUN (9-16) mg/dL Creatinine (0.5-1.4) mg/dL Estim Creat Clear Calc Estimated GFR Random Glucose (60-115) mg/dL Calcium (8.4-10.2) mg/dL Magnesium (1.6-2.6) mg/dL Total Bilirubin (0.0-1.0) mg/dL AST (5-37) U/L ALT (0-40) U/L Alkaline Phosphatase (39-117) U/L Total Creatine Kinase (38-174) U/L Total Protein (6.5-8.0) g/dL Albumin (3.5-5.0) g/dL Ethyl Alcohol < 10 mg/dL Discharge Plan Discharge Clinical Impression: Substance abuse Instructions: Polysubstance Abuse (ED) Additional Instructions: Return to the ED for any suicidal/homicidal ideation, auditory/visual hallucina tions, any physical complaints, or any other concerning symptoms. Please follow-up with PCP Print Language: Mongolian
[2021-02-11] MEDS: 0.9 % Sodium Chloride 1,000 ML 999 ML IV (13:16)
--- NOTE | 2021-02-11 14:39 | PC.NURSE ---
Pt refusing to have labs drawn and refused to sign registration papers. Pt resting quietly
[2021-02-11 14:41] VITALS: BP 120/74; PULSE 52; RESP 18; O2SAT 100
--- NOTE | 2021-02-11 15:08 | PC.NURSE ---
patient refuses to have labs drawn or provide a urine sample.
--- NOTE | 2021-02-11 15:11 | PC.NURSE ---
second attempt for tech to draw blood, pt continues to refuse
--- NOTE | 2021-02-11 15:59 | PC.NURSE ---
Spoke to sister Julita who states only family pt has in area and is currently out of town. Julita states pt has been doing cheryle dust and also uses heroin and crack. [facility] house has been a mess and pt has had multiple recent trips to ED. Sister was told via social media that pt was sleeping in front of apartment. Julita spoke with pt who has convinced pt to obtain necessary labs to complete medical work up. Julita sister contact [phone] Ray soriano
[2021-02-11 16:29] LABS: MANUAL DIFF FLAG NO
[2021-02-11 16:32] LABS: Basophils Percent Auto 0.3 % (0-2); Eosinophils Absolute Auto 0.2 X10*3/uL (0.0-0.4); Eosinophils Percent Auto 2.2 % (0-4); Hematocrit 44.2 % (42-52); Hemoglobin 14.5 g/dl (14.0-18.0); Imm Gran Abs Auto 0.01 X10*3/uL (0.00-0.03); Imm Gran Pct Auto 0.1 % (0.0-0.4); Lymphocytes Absolute Auto 1.7 X10*3/uL (1.2-4.9); Lymphocytes Percent Auto 23.8 % (20-40); Mean Corpuscular HGB Conc 32.8 g/dl (31.0-36.0); Mean Corpuscular Hemoglobin 28.8 pg (27.0-33.0); Mean Corpuscular Volume 87.7 fL (80-98); Mean Platelet Volume 9.2 fL (9.4-12.4); Monocytes Absolute Auto 0.8 X10*3/uL (0.1-1.2); Monocytes Percent Auto 11.1 % (2-11); Neutrophils Absolute Auto 4.6 X10*3/uL (2.0-8.3); Neutrophils Percent Auto 62.5 % (45-73); Platelet Count 398 X10*3/uL (160-400); Red Blood Count 5.04 X10*6/uL (4.60-5.80); Red Cell Distribution Width 13.8 % (11.0-16.0); White Blood Count 7.3 X10*3/uL (4.8-10.8)
[2021-02-11 16:42] LABS: INTERNATIONAL NORM RATIO 1.1 (0.9-1.1); Prothrombin Time 13.5 SEC (10.8-13.0)
[2021-02-11 16:45] LABS: Partial Thromboplastin Time 29.2 SEC (24.1-38.0)
[2021-02-11 16:57] LABS: Ethanol < 10 mg/dL
[2021-02-11 17:04] VITALS: BP 119/76; PULSE 64; RESP 18; TEMP 37.4; O2SAT 99
[2021-02-11 17:08] LABS: Alanine Aminotransferase 56 U/L (0-40); Albumin Level 3.5 g/dL (3.5-5.0); Alkaline Phosphatase 72 U/L (39-117); Anion Gap 14 (12-20); Aspartate Amino Transferase 35 U/L (5-37); Bilirubin Total 0.7 mg/dL (0.0-1.0); Blood Urea Nitrogen 21 mg/dL (9-16); Calcium 9.2 mg/dL (8.4-10.2); Carbon Dioxide 21 mmol/L (22-29); Chloride 111 mmol/L (96-108); Creatinine Clr Calc Pharmacy 121.7; Estimated Glomerular Filt Rate > 60; Glucose Random 87 mg/dL (60-115); Sodium 142 mmol/L (135-145); Total Protein 7.3 g/dL (6.5-8.0)
--- NOTE | 2021-02-11 19:02 | PC.NURSE ---
Spoke to sister Julita again and updated. Plan for pt to go to detox facility at 0200 Pt on phone completing intake with Jericho (head track coach)
--- NOTE | 2021-02-11 19:07 | MHC.RECOVSUP ---
? Reason for consult Help with Detox o Current location: ED8 o Identified substance use concern: Heroin - Seeking ATS (detox) - Support ? Intervention: o ATS bed search started 6:45pm/completed 7:10PM o Community resources provided o Harm reduction discussion ? Plan: o Patient to follow up with HF after discharge ? Additional information: Patient Has a Bed at [facility] At 2AM.. Patient sister has arranged to have a car (A family Member) to be here at the ED at 1:30AM
--- NOTE | 2021-02-11 19:34 | PC.NURSE ---
PT AWAITING FOR DETOX BED AND TO BE PICKED UP AT 0130. WILL CONTINUE TO MONITOR PT.
[2021-02-11 20:06] VITALS: BP 109/68; PULSE 61; RESP 18; TEMP 37.2; O2SAT 98
--- NOTE | 2021-02-11 23:23 | PC.NURSE ---
Sister called stated that patient will have a ride at 1:30 and to wait out front for ride
--- NOTE | 2021-02-12 01:36 | PC.NURSE ---
Patient alert ambulated to emergency department waiting room ride awaiting to take him to detox facility verbalized understanding of discharge instruction
== END 2021-02-12 02:00 | disposition other institution (70) ==
PROVIDERS: Physician Assistant; Emergency Provider Emergency Medicine Emergency Medical Services
DX: F19.10 Other psychoactive substance abuse, uncomplicated (principal); S00.83XA Contusion of other part of head, initial encounter; X58.XXXA Exposure to other specified factors, initial encounter; R53.83 Other fatigue; F17.210 Nicotine dependence, cigarettes, uncomplicated; Z59.0 Homelessness; Y93.9 Activity, unspecified; Y92.414 Local residential or business street as the place of occurrence of the external cause; Y99.9 Unspecified external cause status
CPT/HCPCS: 36415; 70450; 70486; 72125; 80053; 82077; 82550; 83735; 85025; 85610; 85730; 96360; 99284; 99285

== ENCOUNTER 2021-05-18 05:08 | Emergency (ER) | payer MEDICAID, SELFPAY ==
[2021-05-18 05:19] VITALS: BP 142/78; BP 149/95; PULSE 90; PULSE 98; RESP 20; TEMP 36.8; O2SAT 100; BMI 21.7
--- NOTE | 2021-05-18 07:04 | ED.OVERDOSE ---
HPI - Overdose General Chief Complaint: Overdose Stated Complaint: overdose, coax4 now, 10mg narcan Time Seen by Provider: 05/18/21 07:04 Source: patient and EMS Mode of arrival: EMS History of Present Illness HPI Narrative: 41-year-old male who is brought in by EMS after he was found unresponsive, please administered a total of 8 mg of Narcan intranasally, however he was still requiring an additional 2 mg as he had to be supported respiratory. Related Data Allergies Allergy/AdvReac Type Severity Reaction Status Date / Time Penicillins [PENICILLINS] Allergy Unknown VOMITING Verified 01/14/21 20:43 Review of Systems Review of Systems: Yes Unobtainable due to mental condition PMFSH Past Medical History Source: nursing notes reviewed Medical History No known health problems Social History Social History Alcohol intake: current Alcohol intake frequency: a few times a week Alcohol type: beer and hard liquor Patient Tobacco Use Status: Current everyday Tobacco user Substance Use Type: Crack/Cocaine and Heroin Advance Directives: No Physical Exam Vital Signs: Vital Signs: Last Vital Signs Temp 98.2 F 05/18/21 05:19 Pulse 98 05/18/21 05:19 Resp 20 05/18/21 05:19 BP 149/95 H 05/18/21 05:19 Pulse Ox 100 05/18/21 05:19 Body Mass Index 21.7 VITAL SIGNS: Reviewed. GENERAL: Well developed, well nourished, in no acute distress. HEAD: Normocephalic/atraumatic EYES: PERRLA, EOMI OROPHARYNX: no oral lesions noted, posterior pharynx clear LUNGS: Normal breath sounds. SpO2<100> CARDIOVASCULAR: Regular rate and rhythm without noted murmurs ABDOMEN: Soft, non-tender, non-distended with bowel sounds. NEUROLOGIC: GCS-14 and strength and sensation to light touch were grossly intact x 4. Course Course Course Narrative: 41-year-old male with history and clinical presentation consistent with accidental heroin overdose requiring Narcan administration. Patient is currently calm and resting comfortably with a GCS of 14. Patient will be observed until he is clinically sober for discharge. Signed out to Dr Sosa. Discharge Plan Discharge Clinical Impression: Drug overdose Patient Disposition: Home, Self-Care Instructions: Adult Overdose (ED) Additional Instructions: Stop doing drugs. Return to the ER for acute worsening of symptoms.
[2021-05-18 08:45] VITALS: BP 107/74; PULSE 76; RESP 12; TEMP 36.7; O2SAT 97
--- NOTE | 2021-05-18 09:39 | MHC.RECOVRN ---
T/w briefly met with pt in ED 14, as pts d/c paperwork has already been completed. Pt reports a period of recovery, utilizing Suboxone, and that overdose was a result of a single return to use. Pt states I found a cooker and I was just curious. I don't even know much it was, whatever was in the cotton. Pt declines need for ATS. Pt reports having Suboxone appt today at [facility]. Pt declines other recovery support. RN aware.
== END 2021-05-18 09:43 | disposition home or self-care (01) ==
PROVIDERS: Emergency Provider Internal Medicine
DX: T40.1X1A Poisoning by heroin, accidental (unintentional), initial encounter (principal); Y92.9 Unspecified place or not applicable; R40.2410 Glasgow coma scale score 13-15, unspecified time; F11.10 Opioid abuse, uncomplicated; Z71.51 Drug abuse counseling and surveillance of drug abuser
CPT/HCPCS: 99285

== ENCOUNTER 2024-09-09 09:06 | Inpatient (IN) | payer MEDICAID, SELFPAY ==
--- NOTE | ~2024-09-09 | CT_ITS ---
EXAMINATION: CT HEAD WITHOUT CONTRAST CLINICAL INFORMATION: head injury, pain COMPARISON: CT dated February 11, 2021 TECHNIQUE: Contiguous axial imaging was performed from the skull base to vertex without intravenous administration of contrast. This CT examination was performed using dose optimization techniques as appropriate, variously including the following: *Automated exposure control *Adjustment of mA and/or kV according to patient size (this includes techniques or standardized protocols for targeted exams where dose is matched to indication/reason for exam; i.e. extremities or head) *Use of iterative reconstruction technique DLP: 636 mGy-cm FINDINGS: Soft tissue contusion/hematoma preseptal left periorbital. Bony calvarium is intact. Skull base is intact. No gross hematoma, intraconal or extraconal compartments of the orbits. Dextroconvex nasal septum deviation. No acute intracranial hemorrhage, mass effect, midline shift, hydrocephalus or herniation. Nelson-white matter differentiation is normal. Posterior cranial fossa contents demonstrated no acute intraconal hemorrhage or mass effect. Sellar/suprasellar region demonstrated no gross masses. Mucosal thickening and secretions within the left ethmoid air cells, left ostiomeatal unit left frontal ethmoid recess. Tympanic cavities and mastoid cells are aerated.. CT/CT head/brain wo IV con IMPRESSION: No acute fracture, bony calvarium. No acute intracranial hemorrhage. Soft tissue contusion, preseptal left periorbital. Electronically signed by: Gautam Salgado MD 09/09/2024 12:47 PM [facility]
--- NOTE | ~2024-09-09 | CT_ITS ---
EXAMINATION: CT CERVICAL SPINE WITHOUT CONTRAST CLINICAL INFORMATION: Head injury. Pain COMPARISON: None available. TECHNIQUE: Axial 3 mm thin and reformatted 2 mm thin sagittal and coronal images of cervical spine were obtained without contrast. This CT examination was performed using dose optimization techniques as appropriate, variously including the following: *Automated exposure control *Adjustment of mA and/or kV according to patient size (this includes techniques or standardized protocols for targeted exams where dose is matched to indication/reason for exam; i.e. extremities or head) *Use of iterative reconstruction technique DLP: 1255. FINDINGS: On sagittal reconstructed images there is mild straightening of cervical lordosis. The vertebral heights and alignment is normal. Minimal loss of C5-6 and C6/7 disc heights with moderate ventral spondylosis at C4-5, C5-6 and C6/7 disc levels as noted. Rest of the disc heights are normal. The vertebral heights and alignment is preserved. The cervical-medullary junction and C1-C2 alignment is normal. There is no acute fracture, dislocation or subluxation seen. The prevertebral and paravertebral soft tissues are normal. The airway is widely patent. There is mild emphysema in the lung apices. Bilateral TM joints and visualized mandible is intact. CT/CT cervical spine wo IV con IMPRESSION: Mild straightening of cervical lordosis likely spasm. There is no visible acute fracture, dislocation or subluxation seen. Fleischner guidelines were followed. Electronically signed by: Boby Rodney MD 09/09/2024 01:56 PM [facility]
--- NOTE | ~2024-09-09 | CT_ITS ---
EXAMINATION: CT FACIAL BONES WITHOUT CONTRAST CLINICAL INFORMATION: Injury. Pain. COMPARISON: CT dated February 11, 2021. TECHNIQUE: Contiguous axial images through the maxillofacial bones using 3 mm collimation without the IV contrast. Soft tissue and bone algorithm obtained. Sagittal and coronal reformatted images acquired. This CT examination was performed using dose optimization techniques as appropriate, variously including the following: *Automated exposure control *Adjustment of mA and/or kV according to patient size (this includes techniques or standardized protocols for targeted exams where dose is matched to indication/reason for exam; i.e. extremities or head) *Use of iterative reconstruction technique Dose: 260 mGy centimeters. FINDINGS: Soft tissue contusion, preseptal left periorbital. The eyeballs are intact. No hematoma, intraconal or extraconal compartments of the orbits. The orbital rims, orbital fissures and orbital apices are intact. Nasal bones, nasal septum and vomer are intact. Dextroconvex nasal septum deviation. Zygomatic arcs are intact. Maxilla pterygoid plates are intact. Mandible is intact. Temporomandibular joints are intact. Mucosal thickening and secretions in the left ethmoid air cells. Retention cysts versus polyps with a polypoid mucosal thickening left maxillary sinus, left ostiomeatal unit. Tympanic cavities and mastoid air cells are aerated. Poor dentition with multiple dental cavities and periapical hypodensities involving maxilla and mandible. Cervical spondylosis, C4-5. CT/CT facial bones wo IV con IMPRESSION: No acute fracture, maxillofacial bones. Soft tissue contusion, preseptal left periorbital. Acute on chronic paranasal sinus disease involving mostly the left ethmoid air cells and left maxillary sinus. Poor dentition with multiple dental cavities and periapical abscesses.. Electronically signed by: Gautam Salgado MD 09/09/2024 12:56 PM EST
[2024-09-09 09:18] VITALS: BP 148/96; PULSE 66; PULSE 72; RESP 16; TEMP 37.1; O2SAT 97; O2SAT 98; BMI 19.7
[2024-09-09 09:29] VITALS: BP 117/66; PULSE 72; RESP 16; TEMP 37.1; O2SAT 97
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
[2024-09-09 11:06] LABS: MANUAL DIFF FLAG NO
[2024-09-09 11:07] LABS: Basophils Percent Auto 0.4 % (0-2); Eosinophils Absolute Auto 0.2 X10*3/uL (0.0-0.4); Eosinophils Percent Auto 3.5 % (0-4); Hematocrit 35.8 % (42.0-52.0); Hemoglobin 11.7 g/dl (14.0-18.0); Imm Gran Abs Auto 0.01 X10*3/uL (0.00-0.03); Imm Gran Pct Auto 0.2 % (0.0-0.4); Lymphocytes Absolute Auto 1.2 X10*3/uL (1.2-4.9); Lymphocytes Percent Auto 25.5 % (20-40); Mean Corpuscular HGB Conc 32.7 g/dl (31.0-36.0); Mean Corpuscular Hemoglobin 28.3 pg (27.0-33.0); Mean Corpuscular Volume 86.5 fL (80.0-98.0); Mean Platelet Volume 8.9 fL (9.4-12.4); Monocytes Absolute Auto 0.7 X10*3/uL (0.1-1.2); Monocytes Percent Auto 13.6 % (2-11); Neutrophils Absolute Auto 2.7 x10*3/uL (2.0-8.3); Neutrophils Percent Auto 56.8 % (45-73); Platelet Count 271 X10*3/uL (160-400); Red Blood Count 4.14 X10*6/uL (4.60-5.80); Red Cell Distribution Width 13.8 % (11.0-16.0); White Blood Count 4.8 X10*3/uL (4.8-10.8)
[2024-09-09] MEDS: vancomycin HCL 1,000 MG in 0.9 % Sodium Chloride 250 ML 270 MG IV ×2 (11:18→23:27)
[2024-09-09] MEDS: Piperacillin Sodium/Tazobactam 3.375 GM in 0.9 % Sodium Chloride 50 ML IV (11:20)
[2024-09-09 11:21] LABS: Alanine Aminotransferase 47 U/L (0-40); Albumin Level 3.6 g/dL (3.5-5.0); Alkaline Phosphatase 65 U/L (39-117); Anion Gap 6 (12-20); Aspartate Amino Transferase 59 U/L (5-37); Bilirubin Total 0.4 mg/dL (0.0-1.0); Blood Urea Nitrogen 8 mg/dL (9-16); Calcium 8.9 mg/dL (8.4-10.2); Carbon Dioxide 28 mmol/L (22-29); Chloride 105 mmol/L (96-108); Creatinine Clr Calc Pharmacy 101.7; Estimated Glomerular Filt Rate > 60; Glucose Random 112 mg/dL (60-115); Magnesium 2.1 mg/dL (1.6-2.6); Potassium 3.4 mmol/L (3.3-5.1); Sodium 136 mmol/L (135-145); Total Protein 7.9 g/dL (6.5-8.0)
--- NOTE | 2024-09-09 11:35 | PC.NURSE ---
Patient agreeable to have security check belongings for safety. Changed into hospital gown and pants. Security put belongings in closet between [place]iana port doors. 18 g iv placed in right arm, 20g in left arm.
[2024-09-09 11:56] LABS: Erythrocyte Sedimentation Rate 33 MM/HR (0-15)
[2024-09-09 12:09] VITALS: BP 116/73; PULSE 56; RESP 12; TEMP 36.7; O2SAT 100
[2024-09-09 12:32] VITALS: PULSE 56
--- NOTE | 2024-09-09 12:33 | PC.NURSE ---
Both provider and RN have offered methadone, patient declines at this time.
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
--- NOTE | 2024-09-09 14:57 | PHA.PROG ---
Admission Date/Time: September 09, 2024 14:31 Indication: skin + skin structure Weight in k.9 kg Adjusted body weight in Kg: [place] body weight in Kg: Obesity Dosing Indication % IBW: BMI 19.7 Serum Creatinine - Last 168 Hours 09/09/24 10:58 Creatinine 0.78 Estimated CrCl and GFR - Last 168 Hours 09/09/24 10:58 Estim Creat Clear Calc 101.7 Estimated GFR > 60 Vancomycin Loading Dose: 1000mg X1 Current Vancomycin Dosing Regimen: 1000mg Q12H Vancomycin Monitoring using AUC goal of 400 - 600 range with trough as surrogate marker: 503 Date and Time for next Vancomycin Level to be drawn: 09/10 @2100 Pharmacist Comments on Vancomycin Plan: Patient's renal function appears stable. So, dosing with 1000mg Q12H to hit trough around 14.7. To be drawn 09/10 to readjust dose based on trough and renal stability. Vancomycin dosing will take advantage of [employer] as a clinical decision support tool that uses Bayesian modeling to calculate individual patient's pharmacokinetic parameters and forecast the patient's drug concentration time course with the target goal AUC 24 range of 400 - 600 mg/L/hr.
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
--- NOTE | 2024-09-09 15:28 | PHA.MEDREC ---
Addendum entered by Brigitte Brown RPh 09/09/24 15:56: reviewed by [facility]. Original Note: Pharmacy Consult ? Medication Reconciliation Pharmacy has completed the medication reconciliation. Spoke with patient and he confirmed he is not taking any medications right now.
[2024-09-09] MEDS: methADONE HCl 20 MG/2 ML ORAL.CONC 30 MG PO (15:29)
[2024-09-09] MEDS: Enoxaparin Sodium 40 MG/0.4 ML SYRINGE SUBCUT (15:29)
[2024-09-09] MEDS: 0.9 % Sodium Chloride Flush 3 ML SYRINGE IVFLUSH ×2 (15:30→23:27)
--- NOTE | 2024-09-09 16:42 | PC.NURSE ---
Sister deuce updated on patients current condition with patients permission can be reached at [phone]
--- NOTE | 2024-09-09 16:47 | PC.NURSE ---
Report given to RN in overflow
[2024-09-09] MEDS: Piperacillin Sodium/Tazobactam 4.5 GM in 0.9 % Sodium Chloride 100 ML IV ×2 (18:43→23:28)
--- NOTE | 2024-09-10 05:44 | PC.NURSE ---
Patient requesting medication for anxiety, MD notified and aware. Awaiting new orders/feedback.
[2024-09-10] MEDS: Piperacillin Sodium/Tazobactam 4.5 GM in 0.9 % Sodium Chloride 100 ML IV ×3 (06:00→17:20)
[2024-09-10 06:05] VITALS: BP 126/79; PULSE 56; RESP 19; TEMP 37.2; O2SAT 99
[2024-09-10] MEDS: LORazepam 0.5 MG TABLET PO (06:07)
[2024-09-10] MEDS: Acetaminophen 325 MG TABLET 650 MG PO (06:07)
[2024-09-10 06:22] LABS: Hematocrit 35.3 % (42.0-52.0); Hemoglobin 11.6 g/dl (14.0-18.0); Mean Corpuscular HGB Conc 32.9 g/dl (31.0-36.0); Mean Corpuscular Hemoglobin 28.2 pg (27.0-33.0); Mean Corpuscular Volume 85.9 fL (80.0-98.0); Mean Platelet Volume 9.6 fL (9.4-12.4); Platelet Count 284 X10*3/uL (160-400); Red Blood Count 4.11 X10*6/uL (4.60-5.80); Red Cell Distribution Width 13.8 % (11.0-16.0); White Blood Count 4.4 X10*3/uL (4.8-10.8)
[2024-09-10 06:30] LABS: Alanine Aminotransferase 42 U/L (0-40); Albumin Level 3.2 g/dL (3.5-5.0); Alkaline Phosphatase 56 U/L (39-117); Anion Gap 10 (12-20); Aspartate Amino Transferase 48 U/L (5-37); Bilirubin Total 0.3 mg/dL (0.0-1.0); Blood Urea Nitrogen 6 mg/dL (9-16); Calcium 8.7 mg/dL (8.4-10.2); Carbon Dioxide 22 mmol/L (22-29); Chloride 110 mmol/L (96-108); Creatinine Clr Calc Pharmacy 104.4; Estimated Glomerular Filt Rate > 60; Glucose Random 117 mg/dL (60-115); Potassium 3.4 mmol/L (3.3-5.1); Sodium 139 mmol/L (135-145); Total Protein 7.2 g/dL (6.5-8.0)
--- NOTE | 2024-09-10 06:42 | PC.NURSE ---
Patient's sister Bita updated on patient condition. Informed sister that patient would be moving upstairs to a new room shortly.
--- NOTE | 2024-09-10 07:31 | PC.NURSE ---
Pt arrived from ED overflow in bed. Pt has eyes closed but is A&Ox4 and answering questions appropriately. Vital signs stable.
[2024-09-10 07:36] VITALS: BP 130/79; PULSE 64; RESP 20; TEMP 36.5; O2SAT 99
[2024-09-10] MEDS: methADONE HCl 20 MG/2 ML ORAL.CONC 40 MG PO (07:43)
[2024-09-10] MEDS: 0.9 % Sodium Chloride Flush 3 ML SYRINGE IVFLUSH ×2 (07:43→14:55)
[2024-09-10 09:24] VITALS: PULSE 64
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
[2024-09-10] MEDS: vancomycin HCL 1,000 MG in 0.9 % Sodium Chloride 250 ML 270 MG IV (10:30)
[2024-09-10] MEDS: Baclofen 10 MG TABLET PO ×3 (10:30→21:32)
--- NOTE | 2024-09-10 11:55 | PC.NURSE ---
Pt has Penicillin listed as allergy, states it makes him vomit. Pt has received 3 doses of zosyn IV, without any known complications. This RN reached out to Pharmacist Will. Per Pharmacist and MD Cohen continue IV zosyn.
--- NOTE | 2024-09-10 14:38 | MHC.RECOVRN ---
T/W checked on pt. following new meds initiated today for restlessness and anxiety. Pt resting comfortably. Awakes to voice but very tired. Sister at bedside Talked with nurse Louisa who states that pt is much more comfortable following the initiation of Baclofen T/W available PRN Will F/U on pt. tomorrow.
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
[2024-09-10] MEDS: Enoxaparin Sodium 40 MG/0.4 ML SYRINGE SUBCUT (14:53)
[2024-09-10 15:17] VITALS: BP 149/89; PULSE 50; RESP 16; TEMP 36.5; O2SAT 99
[2024-09-10 19:09] VITALS: BP 140/85; PULSE 52; RESP 16; TEMP 36.8; O2SAT 99
[2024-09-10 19:43] LABS: Amphetamine Screen Urine Not Detected (Not Detect); Barbiturates, Urine Not Detected (Not Detect); Benzodiazepines Screen Urine Not Detected (Not Detect); Buprenorphine Scr Not Detected (Not Detect); Cannabinoid Screen Urine Not Detected (Not Detect); Cocaine Screen Urine POSITIVE (Not Detect); Fentanyl, urine POSITIVE (Not Detect); Methadone Screen, Urine Positive (Not Detect); Opiate Screen Urine POSITIVE (Not Detect); Oxycodone Screen Urine Not Detected (Not Detect); Phencyclidine Screen Urine Not Detected (Not Detect)
[2024-09-10 21:43] LABS: Vancomycin Random 9.4 mcg/mL (15-20)
--- NOTE | 2024-09-10 21:51 | HE.PHANOTE ---
RE: VANCO DOSING Trough came back as 9.4 mg/L. Renal function is stable, dose is increased to 750 mg q8h (predicted gwj=778, trough=13.9). Next trough is scheduled for 09/11/24 @2100.
[2024-09-10] MEDS: vancomycin HCL 750 MG in 0.9 % Sodium Chloride 250 ML 265 MG IV (23:26)
[2024-09-11] MEDS: Piperacillin Sodium/Tazobactam 4.5 GM in 0.9 % Sodium Chloride 100 ML IV ×5 (00:28→23:18)
[2024-09-11] MEDS: 0.9 % Sodium Chloride Flush 3 ML SYRINGE IVFLUSH ×4 (00:28→23:24)
[2024-09-11] MEDS: ondansetron HCL 4 MG/2 ML VIAL IVPUSH (00:31)
[2024-09-11] MEDS: methADONE HCl 20 MG/2 ML ORAL.CONC 10 MG PO ×2 (00:36→13:54)
[2024-09-11 03:24] VITALS: BP 146/67; PULSE 48; RESP 18; TEMP 37.1; O2SAT 93
[2024-09-11] MEDS: vancomycin HCL 750 MG in 0.9 % Sodium Chloride 250 ML 265 MG IV ×3 (06:00→23:18)
[2024-09-11 06:30] LABS: Creatinine Clr Calc Pharmacy 104.4; Estimated Glomerular Filt Rate > 60
[2024-09-11 07:03] VITALS: BP 126/72; PULSE 52; RESP 14; TEMP 36.3; O2SAT 98
[2024-09-11] MEDS: Baclofen 10 MG TABLET PO ×3 (08:01→19:57)
[2024-09-11] MEDS: methADONE HCl 20 MG/2 ML ORAL.CONC 40 MG PO (08:01)
[2024-09-11 09:26] LABS: HBS Num1 31.12 mIU/mL (0-7.99); HBc Num1 0.27 S/CO (0.00-0.79); HBsAGNum1 0.55 S/CO (0.00-0.99); HIV AB/AG Nonreactive (Nonreactive); HIV Num 1 0.06 S/CO (0.00-0.99); Hepatitis B Core Antibody Nonreactive (Nonreactive); Hepatitis B Surface Antigen Negative (Negative); ~HepC Num1 16.52 S/CO (0.00-0.79); ~Hepatitis B Surface Antibody REACTIVE (Nonreactive); ~Hepatitis C Antibody Reactive (Nonreactive)
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
--- NOTE | 2024-09-11 12:46 | MHC.RECOVRN ---
Met with pt in 350 to follow up and provide support.? Pt resting comfortably and did awake briefly to voice. Pt reports that the extra 10mg of methadone last night was helpful as well as the baclofen. Pt not displaying rapid leg movements as he was yesterday. Pt fell asleep during visit and no longer participated. Will F/U in the PM ACS available as needed.
--- NOTE | 2024-09-11 15:21 | MHC.CM.PN ---
per rounds possible dc thurs dc plan remains home
[2024-09-11 15:25] VITALS: BP 121/77; PULSE 52; RESP 14; TEMP 36.6; O2SAT 98
[2024-09-11 19:38] VITALS: BP 124/77; PULSE 51; RESP 18; TEMP 36.6; O2SAT 98
[2024-09-11 21:20] LABS: Vancomycin Random 14.8 mcg/mL (15-20)
[2024-09-11] MEDS: Melatonin 3 MG TABLET 6 MG PO (23:17)
[2024-09-12 03:21] VITALS: BP 128/83; PULSE 50; RESP 18; TEMP 36.8; O2SAT 98
[2024-09-12] MEDS: Piperacillin Sodium/Tazobactam 4.5 GM in 0.9 % Sodium Chloride 100 ML IV (05:42)
[2024-09-12] MEDS: vancomycin HCL 750 MG in 0.9 % Sodium Chloride 250 ML 265 MG IV (06:18)
[2024-09-12 07:00] LABS: Creatinine Clr Calc Pharmacy 104.4; Estimated Glomerular Filt Rate > 60
[2024-09-12] MEDS: 0.9 % Sodium Chloride Flush 3 ML SYRINGE IVFLUSH (07:20)
[2024-09-12] MEDS: methADONE HCl 20 MG/2 ML ORAL.CONC 60 MG PO (07:28)
[2024-09-12 07:47] VITALS: BP 128/74; PULSE 51; RESP 16; TEMP 36.8; O2SAT 98
[2024-09-12] MEDS: Baclofen 10 MG TABLET PO (07:59)
--- NOTE | 2024-09-12 10:46 | HO.ADDICTPRO ---
Subjective Subjective Date of Service: 09/12/24 Reason For Visit: lower lip cellulitis Interim History: Patient seen in follow up for OUD Methadone dose 60mg this morning Patient awake, alert, appearing more comfortable than previous assessments Reports feeling better . Brighter affect. Eating Scheduled to discharge today. Review of Systems Constitutional: Reports as per HPI and Reports no additional constitutional complaints Mental Status Exam Mental Status Exam Patient Appearance: Appropriate Level of Consciousness: Awake, Appropriate and Alert Patient Behavior: Appropriate and Cooperative Mood Description: Calm Speech Pattern: Clear Thought Process: Intact Thought Content: positive for Intact Judgement: Good Diagnostics Vital Signs (24Hr): Vital Signs - 24 hr 09/11/24 15:25 09/11/24 19:38 09/12/24 03:21 Temperature 97.9 F 98 F 98.2 F Pulse Rate 52 51 50 Respiratory Rate 14 18 18 Blood Pressure 121/77 124/77 128/83 Pulse Oximetry 98 98 98 Oxygen Delivery Method Room Air Room Air Room Air 09/12/24 07:47 Temperature 98.3 F Pulse Rate 51 Respiratory Rate 16 Blood Pressure 128/74 Pulse Oximetry 98 Oxygen Delivery Method Room Air BMI result Body Mass Index 19.7 Labs 09/10/24 05:03 09/12/24 05:42 Labs: Laboratory Results - last 48 hr 09/10/24 09/10/24 09/11/24 19:16 21:19 05:43 Creatinine 0.76 Estim Creat Clear Calc 104.4 Estimated GFR > 60 Random Vancomycin 9.4 L Urine Opiates Screen POSITIVE H Ur Buprenorphine Scrn Not Detected Ur Oxycodone Screen Not Detected Urine Methadone Screen Positive H Urine Fentanyl Screen POSITIVE H Ur Barbiturates Screen Not Detected Ur Phencyclidine Scrn Not Detected Ur Amphetamines Screen Not Detected U Benzodiazepines Scrn Not Detected Urine Cocaine Screen POSITIVE H U Marijuana (THC) Screen Not Detected Hep Bs Antigen Negative Hep Bs Antibody REACTIVE Hep B Core Total Ab Nonreactive Hepatitis C Ab (EIA) Reactive H HIV 1&2 Ab/P24 Ag 4thGn Nonreactive 09/11/24 09/12/24 20:53 05:42 Creatinine 0.76 Estim Creat Clear Calc 104.4 Estimated GFR > 60 Random Vancomycin 14.8 L Urine Opiates Screen Ur Buprenorphine Scrn Ur Oxycodone Screen Urine Methadone Screen Urine Fentanyl Screen Ur Barbiturates Screen Ur Phencyclidine Scrn Ur Amphetamines Screen U Benzodiazepines Scrn Urine Cocaine Screen U Marijuana (THC) Screen Hep Bs Antigen Hep Bs Antibody Hep B Core Total Ab Hepatitis C Ab (EIA) HIV 1&2 Ab/P24 Ag 4thGn Imaging Radiology Impressions: ITS Impressions Cervical Spine CT 09/09/24 11:07 IMPRESSION: Mild straightening of cervical lordosis likely spasm. There is no visible acute fracture, dislocation or subluxation seen. Fleischner guidelines were followed. Electronically signed by: Boby Rodney MD 09/09/2024 01:56 PM EST RP Head CT 09/09/24 11:07 IMPRESSION: No acute fracture, bony calvarium. No acute intracranial hemorrhage. Soft tissue contusion, preseptal left periorbital. Electronically signed by: Gautam Salgado MD 09/09/2024 12:47 PM EST RP Face CT 09/09/24 11:45 IMPRESSION: No acute fracture, maxillofacial bones. Soft tissue contusion, preseptal left periorbital. Acute on chronic paranasal sinus disease involving mostly the left ethmoid air cells and left maxillary sinus. Poor dentition with multiple dental cavities and periapical abscesses.. Electronically signed by: Gautam Salgado MD 09/09/2024 12:56 PM EST RP Medications Medications Current Medications Acetaminophen (Acetaminophen 325 Mg Tablet) 650 mg PO Q6H PRN PRN Reason: Pain, Mild 1-3,fever,headache Last Admin: 09/10/24 06:07 Dose: 650 mg Baclofen (Baclofen 10 Mg Tablet) 10 mg PO TID [facility] Last Admin: 09/12/24 07:59 Dose: 10 mg Calcium Carbonate (Calcium Carbonate 750 Mg Tab.Chew) 750 mg PO Q4H PRN PRN Reason: Heartburn Enoxaparin Sodium (Enoxaparin Sodium 40 Mg/0.4 Ml Syringe) 40 mg SUBCUT Q24H [facility] Last Admin: 09/11/24 15:15 Dose: Not Given Piperacillin Sod/Tazobactam (Sod 4.5 gm/ Sodium Chloride) 100 mls @ 200 mls/hr IV Q6H [facility] Last Infusion: 09/12/24 06:19 Dose: Infused Vancomycin HCl 750 mg/ Sodium (Chloride) 265 mls @ 265 mls/hr IV Q8H [facility] Last Infusion: 09/12/24 07:26 Dose: Infused Magnesium Hydroxide (Milk Of Magnesia 30 Ml Oral.Susp) 30 ml PO DAILY PRN PRN Reason: Constipation Melatonin (Melatonin 3 Mg Tablet) 6 mg PO BEDTIME PRN PRN Reason: Insomnia Last Admin: 09/11/24 23:17 Dose: 6 mg Methadone HCl (Methadone Hcl 20 Mg/2 Ml Oral.Conc) 10 mg PO DAILY PRN PRN Reason: Opiate Withdrawal Last Admin: 09/11/24 00:36 Dose: 10 mg Methadone HCl (Methadone Hcl 20 Mg/2 Ml Oral.Conc) 60 mg PO DAILY@0800 [facility] Last Admin: 09/12/24 07:28 Dose: 60 mg Ondansetron HCl (Ondansetron Hcl 4 Mg/2 Ml Vial) 4 mg IVPUSH Q8H PRN PRN Reason: Nausea and Vomiting Last Admin: 09/11/24 00:31 Dose: 4 mg Pharmacy Consult (Consult Rx Vancomycin Dosing) 1 each MISCELLANE DAILY PRN PRN Reason: Consult order Sodium Chloride (0.9 % Sodium Chloride Flush 3 Ml Syringe) 3 ml IVFLUSH QSHIFT [facility] Last Admin: 09/12/24 07:20 Dose: 3 ml Allergies Allergies Allergy/AdvReac Type Severity Reaction Status Date / Time Penicillins [PENICILLINS] Allergy Unknown VOMITING Verified 09/09/24 09:22 Assessment & Plan Assessment & Plan (1) Opioid use disorder: Status: Acute Code(s): F11.90 - Opioid use, unspecified, uncomplicated Assessment and Plan: soap tender to sandrine referral to [facility] OTP Take home narcan provided Total time managing care of this patient today __20__ minutes.
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
--- NOTE | 2024-09-12 11:02 | MHC.CM.PN ---
Addendum entered by Sayda Alvarez 09/12/24 13:04: CM MET WITH PT TO DISCUSS DC AND AFTERCARE PT ASKING QUESTIONS ABOUT HIS METHADONE TREATMENT, CM EXPLAINED THE TUBE TEST TECHNICIAN WOULD BE HERE TO PROVIDE DETAILED INSTRUCTIONS PT REQUESTED A PT 1 BE COMPLETED FOR HIS TRANSPORT TO THE METHADONE CLINIC, HOWEVER BECAUSE IT [place] L[place] THAT [place] [place] FROM HIS HOME IT DID NOT GO THROUGH CM ENCOURAGED HIM TO DISCUSS PT 1 TRANSPORT WITH [facility] STAFF PT WILL TRANSPORT HOME VIA C SHUTTLE Original Note: PT WILL DC HOME TODAY WITH NO SERVICES VIA SHUTTLE TRANSPORT
[2024-09-12] MEDS: Naloxone HCl Nasal TAKE HOME 4 MG SPRAY 8 MG NOSTRILALT (11:34)
--- NOTE | 2024-09-12 12:55 | MHC.RECOVRN ---
Pts referral sent to [facility].
== END 2024-09-12 13:06 | disposition home or self-care (01) | DRG 115 ==
LOC: HO.ED 09:58 → HO.EDOVER 14:47 → HO.S3 09-10 05:48
PROVIDERS: Nurse Practitioner Psychiatric/Mental Health; Physician Assistant Medical; Admitting Provider Hospitalist; Emergency Provider Emergency Medicine Emergency Medical Services; Visit Provider Hospitalist
DX: K13.0 Diseases of lips (principal); F11.90 Opioid use, unspecified, uncomplicated
CPT/HCPCS: 36415; 70450; 70486; 72125; 80053; 80202; 80307; 82565; 83735; 85025; 85027; 85652; 86140; 86704; 86706; 86803; 87040; 87340; 87389; 99285; J1650; J2405; J2543; J3370

== ENCOUNTER → 2024-09-09 09:56 | Outpatient (BNV) | payer MEDICAID, SELFPAY | PROVIDERS: Emergency Provider Emergency Medicine Emergency Medical Services; Visit Provider Hospitalist | DX: L03.211 Cellulitis of face (principal); L02.01 Cutaneous abscess of face; F11.90 Opioid use, unspecified, uncomplicated | CPT/HCPCS: 99223 ==

== ENCOUNTER → 2024-09-09 11:07 | Outpatient (BNV) | payer MEDICAID, SELFPAY | PROVIDERS: Emergency Provider Emergency Medicine Emergency Medical Services; Visit Provider Radiology Diagnostic Radiology | DX: M40.50 Lordosis, unspecified, site unspecified (principal); J01.81 Other acute recurrent sinusitis; S00.12XA Contusion of left eyelid and periocular area, initial encounter | CPT/HCPCS: 70450; 70486; 72125 ==

== ENCOUNTER → 2024-09-09 14:31 | Outpatient (BNV) | payer MEDICAID, SELFPAY | PROVIDERS: Admitting Provider Hospitalist; Emergency Provider Emergency Medicine Emergency Medical Services; Visit Provider Nurse Practitioner Psychiatric/Mental Health | DX: F11.90 Opioid use, unspecified, uncomplicated (principal) | CPT/HCPCS: 99221 ==